=== PATIENT | female | born 1970 | race Caucasian/White ===

== ENCOUNTER 2018-04-04 18:26 | Emergency (ER) | payer OTHER ==
[~2018-04-04] VITALS: Ht 170.2 cm; Wt 77.0 kg
[2018-04-04] MEDS ORDERED: KETOROLAC 60MG/2ML VIAL IM STA (20:08)
[2018-04-04] MEDS ORDERED: DIPHENHYDRAMINE 50MG CAPSULE PO ONE (20:30)
[2018-04-04 21:14] VITALS: BP 135/92
== END 2018-04-04 21:15 | disposition home or self-care (01) ==
LOC: ER 18:26
DX: B02.29 Other postherpetic nervous system involvement (principal); B85.0 Pediculosis due to Pediculus humanus capitis; F17.200 Nicotine dependence, unspecified, uncomplicated; Z88.0 Allergy status to penicillin; Z88.1 Allergy status to other antibiotic agents
CPT/HCPCS: 96372; 99283; J1885; Z7610; Q0163